=== PATIENT | female | born 1995 ===

== ENCOUNTER 2020-01-01 09:16 | Inpatient (IN) | payer OTHER ==
[~2020-01-01] VITALS: Ht 172.7 cm; Wt 62.6 kg
[2020-01-01] MEDS ORDERED: PRENATAL CAPLE1 EAC1 PO (10:07)
== END 2020-01-02 08:51 | disposition home or self-care (01) | DRG 807 ==
LOC: LDR 09:16 → OB/GYN 09:16
PROVIDERS: ADMIT Specialist; ATTEND Specialist
PROC: 10E0XZZ Delivery of Products of Conception, External Approach (ICD-10-PCS; principal; 2020-01-01)
PROC: 0UQMXZZ Repair Vulva, External Approach (ICD-10-PCS; 2020-01-01)
PROC: 3E033VJ Introduction of Other Hormone into Peripheral Vein, Percutaneous Approach (ICD-10-PCS; 2020-01-02)
PROC: 3E0P7VZ Introduction of Hormone into Female Reproductive, Via Natural or Artificial Opening (ICD-10-PCS; 2020-01-02)
PROC: 4A1HXFZ Monitoring of Products of Conception, Cardiac Rhythm, External Approach (ICD-10-PCS; 2020-01-02)
PROC: BY4FZZZ Ultrasonography of Third Trimester, Single Fetus (ICD-10-PCS; 2020-01-02)
DX: O36.4XX0 Maternal care for intrauterine death, not applicable or unspecified (principal); Z37.1 Single stillbirth; O71.82 Other specified trauma to perineum and vulva; O24.429 Gestational diabetes mellitus in childbirth, unspecified control; Z3A.35 35 weeks gestation of pregnancy; Z20.828 Contact with and (suspected) exposure to other viral communicable diseases